=== PATIENT | female | born 1935 | race Caucasian/White ===

== ENCOUNTER → 2025-03-25 05:00 | Outpatient (REF) | payer MEDICARE, SELFPAY ==
[2025-03-25 08:18] LABS: Hematocrit 38.2 % (37-47); Hemoglobin 12.8 g/dL (12.0-15.0); Mean Corp Hgb Conc 33.5 g/dL (32-36); Mean Corpuscular Volume 90.5 fL (81-99); Mean Platelet Vol. 9.1 fl (6.2-12.0); Platelet Count 195 K/mm3 (150-450); RBC Distribution Width CV 12.7 % (11.6-14.6); RBC Distribution Width SD 42.1 fl (35.1-43.9); Red Blood Count 4.22 M/mm3 (4.2-5.4); White Blood Count 5.1 K/mm3 (4.4-11.0)
[2025-03-25 08:34] LABS: AST(SGOT) 14 U/L (<=31); Alanine Aminotransfer ALT/SGPT < 5 U/L (<=34); Albumin, Serum 3.6 g/dL (3.4-4.8); Alkaline Phosphatase 77 U/L (35-104); Anion Gap 12 (5-15); BUN 19 mg/dL (4-19); BUN/Creat Ratio 26.7 RATIO (10-20); Calcium,Total 8.7 mg/dL (7.6-11.0); Carbon Dioxide 23.6 mmol/L (21.0-32.0); Chloride 106 mmol/L (98-108); Globulin 2.3 g/dL (2.2-4.2); Glucose 87 mg/dL (70-99); Potassium 4.2 mmol/L (3.3-5.1)
== END ==
LOC: OLS.ACH 05:00
PROVIDERS: Visit Provider Internal Medicine
DX: E78.5 Hyperlipidemia, unspecified (principal); G20.A1 Parkinson's disease without dyskinesia, without mention of fluctuations; Z91.81 History of falling
CPT/HCPCS: 36415; 80053; 85027

== ENCOUNTER → 2025-04-22 23:30 | Outpatient (REF) | payer MEDICARE, SELFPAY ==
[2025-04-23 08:03] LABS: Mucous, Urine 0 SEEN /hpf (<or=2+); Red Blood Cells-Urine 0 SEEN /hpf (0-5)
[2025-04-23 08:31] LABS: Color, Urine YELLOW (Yellow); Glucose, Dipstick Normal (Normal); Ketone-Dipstick Negative (Negative); Leukocyte Esterase-Dipstick Negative /ul (Negative); Nitrite-Dipstick Negative (Negative); Occult Blood-Urine 10 /ul (Negative); Protein-Dipstick Negative (Negative); Specific Gravity, Urine 1.005 (1.002-1.030); Urine Bilirubin Dipstick Negative (Negative)
[2025-04-23 08:32] LABS: Squamous Epithelial Cells - UA 0-5 SEEN /hpf (5-10)
== END ==
LOC: OLS.ACH 23:30
PROVIDERS: Visit Provider Internal Medicine
DX: R30.0 Dysuria (principal)
CPT/HCPCS: 81001; 87086; 87088

== ENCOUNTER → 2025-04-29 05:00 | Outpatient (REF) | payer MEDICARE, SELFPAY ==
[2025-04-29 07:37] LABS: Mucous, Urine 0 SEEN /hpf (<or=2+); Red Blood Cells-Urine 0 SEEN /hpf (0-5); Squamous Epithelial Cells - UA 0 SEEN /hpf (5-10)
[2025-04-29 08:02] LABS: Color, Urine Yellow (Yellow); Glucose, Dipstick Normal (Normal); Ketone-Dipstick 5 mg/dl (Negative); Leukocyte Esterase-Dipstick Negative /ul (Negative); Nitrite-Dipstick Negative (Negative); Occult Blood-Urine 25 /ul (Negative); Protein-Dipstick 15 mg/dl (Negative); Specific Gravity, Urine 1.010 (1.002-1.030); Urine Bilirubin Dipstick Negative (Negative)
== END ==
LOC: OLS.ACH 05:00
PROVIDERS: Visit Provider Internal Medicine
DX: Z03.89 Encounter for observation for other suspected diseases and conditions ruled out (principal); F03.90 Unspecified dementia, unspecified severity, without behavioral disturbance, psychotic disturbance, mood disturbance, and anxiety; F05 Delirium due to known physiological condition
CPT/HCPCS: 81001; 87077; 87086; 87088; 87186